=== PATIENT | male | born 1950 | race Caucasian/White ===

== ENCOUNTER 2020-05-17 16:23 | Emergency (ER) | payer MEDICARE, OTHER ==
[~2020-05-17] VITALS: Ht 177.8 cm; Wt 108.9 kg
[~2020-05-17 16:23] MED LIST: AMITIZA8 MCG PO; DOXEPIN HCL10 MG PO; INDOMETHACIN50 MG; LISINOPRIL20 MG PO; METFORMIN HCL500 M2 PO; PRAVACHOL40 MG PO; PROBIOTIC1 EAC1 PO; TRAMADOL HCL50 MG PO; TUMS200 MG PO
[2020-05-17] MEDS ORDERED: PIROXICAM20 MG PO (16:57)
[2020-05-17] MEDS ORDERED: ALLOPURINOL100 MG PO (16:58)
== END 2020-05-17 19:19 | disposition home or self-care (01) ==
LOC: ED 16:23
DX: M54.6 Pain in thoracic spine (principal); I10 Essential (primary) hypertension; E11.9 Type 2 diabetes mellitus without complications; Z88.0 Allergy status to penicillin; Z88.5 Allergy status to narcotic agent; Z91.048 Other nonmedicinal substance allergy status; Z79.899 Other long term (current) drug therapy; Z79.84 Long term (current) use of oral hypoglycemic drugs
CPT/HCPCS: 74176; 80053; 81001; 85025; 96374; 96376; 99284-25; J1885

== ENCOUNTER 2020-05-19 12:17 | Inpatient (IN) | payer MEDICARE, OTHER ==
[~2020-05-19] VITALS: Ht 177.8 cm; Wt 108.0 kg
[~2020-05-19 12:17] MED LIST changes: +ALLOPURINOL100 MG PO; +PIROXICAM20 MG PO
--- OUTSIDE RECORDS SUMMARY | 2020-05-19 12:20 | XMS ---
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 Meggan has no Care Guidelines for this patient. K[facility] (12 MO.) [facility] NOTE: Visits indicate total known visits. ED/C VISIT TRACKING (12 MO.) [facility] COMPLAINT: - ABD PAIN 05/17/2020 16:23 [facility] Lennon OR TYPE: Emergency COMPLAINT: - R FLANK PAIN INPATIENT VISIT TRACKING (12 MO.) No inpatient visits to display in this time frame [email or web address]
[2020-05-19] MEDS ORDERED: TAMSULOSIN HCL0.4 MG PO (16:45)
--- NOTE | 2020-05-19 17:37 | NUR ---
this rn went to er to get pt to transition care to med surg, introduced self, confirmed allergys on consent for sx, red band to arm. pt voided 300 ml urine dark in urinal and rn emptied, new iv bag of lr at 125 hung. pt oriented to plan of care and transiton to surgery and med surg. pt to go to or from er.
--- NOTE | 2020-05-19 19:53 | NUR ---
05/19/201951 Samantha Moctezuma 193Yoly PATIENT INTO PACU FROM OR. BEDSIDE REPORT WITH HAL KEBEDE AND MARILYN RN. PATIENT HAS AIRWAY IN PLACE AND ON 10 L OXYGEN WITH MASK. DRESSING TO ABDOMEN C/D/I WITH ELENO IN PLACE. PATIENT BREATHING REGULAR AND DAVIDE.
--- NOTE | 2020-05-19 20:29 | NUR ---
PT ARRIVED TO ROOM 123 FROM PACU. PT ALERT, ORIENTED, DENIES PAIN OR DISCOMFORT. WITH SBA, HE STOOD UP AND TRANSFERED TO HOSP BED FROM THE STRETCHER. AT THIS TIME, PT HAS NOT VOIDED SINCE SURGERY.
--- NOTE | 2020-05-19 21:15 | NUR ---
PT TO ROOM 123 WITH PACU NURSE. REPORT RECEIVED. PT ALERT AND ORIENTED. ABLE TO TRANSFER SELF WITH SBA FROM STRETCHER TO BED. DENIES PAIN OR NAUSEA AT THIS TIME. ORDERS RECEIVED. LAP SITES X 3 CDI. INCISION TO RLQ COVERED WITH ACTICOAT AND ADHESIVE DRESSING WITH SMALL AMOUNT OF SEROSANG DRAINAGE. ELENO DRAIN IN PLACE WITH SMALL AMOUNT OF SEROSANG DRAINAGE. ABD ROUND AND FIRM. BT HYPOACTIVE. SCD'S IN PLACE. ASSESSMENT COMPLETE. SCHEDULED MEDS ADMINISTERED. IVF INFUSING. PT ORIENTED TO ROOM AND NURSE CALL LIGHT. DENIES QUESTIONS OR CONCERNS AT THIS TIME. WHITE BOARD UPDATED. CALL LIGHT IN REACH.
--- NOTE | 2020-05-19 21:26 | EKG ---
[facility] [address] [facility] [place], [place] [address] Signed Normal sinus rhythm Left axis deviation Abnormal ECG No previous ECGs available Confirmed by BOSSMAN JO MD ([id number]) on 05/19/2020 9:26:35 PM Electronically Signed By: BOSSMAN JO MD 05/19/202125 PATIENT NAME: LUKAS LEVI Electrocardiogram DATE OF : 50 PHYSICIAN: BOSSMAN JO MD REPORT #: [id number] REPORT IS CONFIDENTIAL AND NOT TO BE RELEASED WITHOUT AUTHORIZATION
--- NOTE | 2020-05-19 21:33 | NUR ---
VITALS COMPLETE. PT WOKE TO SOUND. DENIES PAIN NEEDS, DRESSING WITH DRAINAGE, RLQ; DRAIN INTACT. SCD'S IN PLACE. STATES THEY MAKE LEGS FEEL GOOD. DENIES NEED TO VOID AT THIS TIME. CALL LIGHT WITHIN REACH.
--- NOTE | 2020-05-19 22:45 | NUR ---
POST-OP VS COMPLETE. WNL. PT UP TO BR WITH SBA TO VOID 450 ML CONCENTRATED URINE. GAIT STEADY. BACK TO BED, DARRICK WELL. PT REPORTS INCREASED PAIN WITH AMB AND GETTING OOB. WHILE AT REST 05/12. DENIES NAUSEA.
--- NOTE | 2020-05-19 23:25 | NUR ---
PRN ADMINISTERED FOR ABD PAIN. CLEAR LIQUIDS PROVIDED. ICE PACK PROVIDED FOR INCISIONAL PAIN.
--- NOTE | 2020-05-19 23:47 | NUR ---
POST-OP VS COMPLETE. WNL. ASSISTED PT TO REPOSITION IN BED. NO FURTHER NEEDS AT THIS TIME. CALL LIGHT IN REACH.
--- NOTE | 2020-05-20 02:48 | NUR ---
VS AND I&O COMPLETE. PT UP TO BR WITH SBA TO VOID. GAIT STEADY. BACK TO BED, DARRICK WELL. SCD'S IN PLACE. PT REPORTS ABD PAIN 05/12, DENIES PRN FOR PAIN AT THIS TIME. DENIES NAUSEA. CLEAR LIQUIDS PROVIDED. FRESH ICE PACK FOR INCISION. O2 2L/NC AND CPOX IN PLACE. SpO2 96% ON 2L. HR 80'S.
--- NOTE | 2020-05-20 06:34 | NUR ---
ASSESSMENT COMPLETE. IV ABX INFUSING PER ORDER. ABD FIRM AND DISTENDED. PT STATES THIS IS "NORMAL" FOR HIM. BOWEL TONES ACTIVE. PT REPORTS FLATUS. LAP SITES X 3 COVERED WITH GAUZE AND OPSITE WITH SMALL AMOUNT SEROSANG DRAINAGE. RLQ DRESSING REINFORCED WITH DRAIN SPONGE AND FOAM TAPE. PRN ADMINISTERED FOR RLQ PAIN. PT DENIES NAUSEA. BREAKFAST ORDERED. OXYGEN WEENED OFF AT THIS TIME. SpO2 95% ON RA. CPOX IN PLACE. CALL LIGHT IN REACH.
--- NOTE | 2020-05-20 07:15 | NUR ---
ROUNDING REPORT..TALKED TO PT ABOUT HAVING HIS BRING IN HOME CPAP.
--- NOTE | 2020-05-20 07:16 | NUR ---
CALL LIGHT ANSWERED. SBA TO THE BATHROOM. PATIENT IS BACK TO BED. NO OTHER NEEDS AT THIS TIME.
--- NOTE | 2020-05-20 07:57 | NUR ---
PT RESTING SOUNDLY AT SHIFT EXCHANGE. SITTING URIGHT NOW EATING MORNING MEAL. DENIES PAIN OR NEEDS OF
[2020-05-20] MEDS ORDERED: FISH OIL 1,0001 EAC3 PO (09:51)
[2020-05-20] MEDS ORDERED: L-ARGININE1000 MG PO (09:53)
[2020-05-20] MEDS ORDERED: VITAMIN B-121000 MC2 SL (09:54)
--- NOTE | 2020-05-20 09:55 | NUR ---
MED REC COMPLETE
--- NOTE | 2020-05-20 10:52 | NUR ---
PT UP TO TOILET THEN AMBULATES THE LUCIO 5 ROUNDS WELL TOLERATED. DENIES ANY ABDOMINAL PAIN EXCEPT WHEN GETTING UP AND DOWN. DOES REPORT SOME CHRONIC BACK PAIN. TYLENOL ADMINISTERED, IBUPROFEN EARLIER. PT RETURNS TO RESTING IN BED STATES HE WANTS TO HAVE A NAP BEFORE HIS GETS HERE.
--- NOTE | 2020-05-20 11:00 | NUR ---
Met with patient to discuss his discharge plan. Pt plans to go home with , pt reports no problems with obtaining food or medication. Pt has no concerns in returning home with his , he is ambulating in the cantu and does not anticipate needing any DME at discharge.
--- NOTE | 2020-05-20 11:04 | NUR ---
PATIENT AMBULATED IN HALLWAY WITH RN. PATIENT NOW IN BED RESTING. FRESH ICE PACK GIVEN. CALL LIGHT IN REACH. NO FURTHER NEEDS AT THIS TIME.
--- NOTE | 2020-05-20 13:30 | NUR ---
PT IN TO SEE HIM, ASSISTS HIM TO DO PERSONAL CARES. PT AMBULATES THE LUCIO WITH SEVERAL ROUNDS RETURNS TO BED.
--- NOTE | 2020-05-20 13:30 | NUR ---
PT UP AMBULATING IN LUCIO WITH RN RAUL. HE SEEMS TO BE MOVING WELL, DOING SEVERAL LAPS. GAVE ENCOURAGEMENT, WILL FOLLOW
--- NOTE | 2020-05-20 15:04 | NUR ---
HELPED PATIENT DO A SPONGE BATH. ORAL CARE, CROW CARE, SKIN CARE, SHAMPOO DONE. PATIENT NOW BACK IN BED. CALL LIGHT IN REACH. NO FURTHER NEEDS AT THIS TIME.
--- NOTE | 2020-05-20 15:30 | NUR ---
PT RESTING EYES CLOSED
--- NOTE | 2020-05-20 17:13 | NUR ---
PT WAS IN FOR A VISIT BROUGHT HOME CPAP. SHE LEAVES FOR THE EVENING. PT SITTING UPRIGHT IN BED WITH EVENING MEAL DENIES DISCOMFORTS OR NEEDS OF
--- NOTE | 2020-05-20 18:25 | NUR ---
[facility] PATIENT NOW BACK TO BED. CALL LIGHT IN REACH. NO FURTHER NEEDS AT THIS TIME.
--- NOTE | 2020-05-20 18:40 | NUR ---
PT TOLERATES 100% OF EVENING MEAL. UP AMBULATING THE HALLS INDEPENDANTLY STEADY ON HIS FEET
--- NOTE | 2020-05-20 19:42 | NUR ---
REPORT RECEIVED FROM DAY SHIFT RN. PT LYING IN BED ALERT AND ORIENTED. DENIES NEEDS AT THIS TIME. WHITE BOARD UPDATED. CALL LIGHT IN REACH.
--- NOTE | 2020-05-20 19:50 | NUR ---
VISITED WITH PT, STATES HE IS DOING OK. ASSISTED HIM WITH BUTTONING HIS GOWN, CHECKED ELENO, SCANT AMOUNT DRAINAGE, SEROSANGUINOUS. PT WITH NO OTHER NEEDS.
--- NOTE | 2020-05-20 20:39 | NUR ---
SENIOR SUPPORT ENGINEER TO ROOM FOR SCHEDULED MED ADMINISRATION. PT REPORTS HAVING INCREASED PAIN TO NAVAL, IS CONCERNED THAT THIS IS LASTING FROM [place] SHOT ADMINISTERED EARLIER IN THE DAY. SENIOR SUPPORT ENGINEER ASSESSED PT'S ABD, LAP SITE PRESENT TO NAVAL WITH GAUZE AND OPSITE. SMALL AMOUNT OF DRAINAGE PRESENT TO GAUZE. PT STATES HE WAS UNAWARE THAT HE HAD A LAP SITE THERE. STATES THE PAIN "MAKES SENSE NOW". VS OBTAINED, WNL. ELENO DRAIN EMPTIED, SANGUINEOUS DRAINAGE PRESENT. SCD'S APPLIED. ICE PACK AND ICE WATER PROVIDED. PT DENIES FURTHER NEEDS AT THIS TIME. CALL LIGHT IN REACH.
--- NOTE | 2020-05-20 21:35 | NUR ---
PATIENT CALLED. SBA TO THE BATHROOM AND BACK TO BED. SCD BACK ON. ICE WATER AND CHICKEN BROTH PROVIDED PER PATIENT'S REQUEST. NO OTHER NEEDS AT HTIS TIME.
--- NOTE | 2020-05-20 21:45 | NUR ---
EVENING ASSESSMENT COMPLETE. SCHEDULED MEDS ADMINISTERED PER EMAR. PT DENIES PAIN OR NAUSEA. ABD FIRM AND DISTENDED. PT STATES NORMAL. BOWEL TONES ACTIVE, PT REPORTS FLATUS BUT NO BM TODAY. LAP SITES X 3 COVERED WITH SMALL AMOUNT SEROSANG DRAINAGE. INCISION TO RLQ COVERED WITH GAUZE AND SATURATED WITH SEROSANG DRAINAGE AT DISTAL END. DRESSING REPLACED WITH CLEAN DRAIN SPONGE, ABD PAD, AND FOAM TAPE. ELENO INTACT WITH SMALL AMOUNT SEROSANG DRAINAGE. CLEAN GOWN PROVIDED. PT DENIES QUESTIONS OR CONCERNS. CALL LIGHT IN REACH.
--- NOTE | 2020-05-20 22:57 | NUR ---
SBA TO THE BATHROOM AND BACK TO BED. SCD BACK ON. NO OTHER NEEDS AT THIS TIME.
--- NOTE | 2020-05-20 23:35 | NUR ---
CALL LIGHT ANSWERED. IV ABX COMPLETE. PT UP TO BR WITH MINIMAL SBA TO VOID. GAIT STEADY. BACK TO BED, DARRICK WELL. PRN ADMINISTERED FOR ABD PAIN. ICE PACK PROVIDED. NO FURTHER NEEDS AT THIS TIME. CALL LIGHT IN REACH.
--- NOTE | 2020-05-21 01:15 | NUR ---
PT RESTING IN BED WITH EYES CLOSED, NAD. HOME C-PAP IN USE. SCD'S IN PLACE.
--- NOTE | 2020-05-21 03:00 | NUR ---
IV ABX INFUSING PER ORDER. PT UP TO BR WITH MINIMAL SBA TO VOID 350 ML CLEAR YELLOW URINE. PT ATTEMPTED BM WITH NO RESULTS STATES "IT'S JUST GAS". BACK TO BED, DARRICK WELL. FRESH WATER AND ICE PACK PROVIDED. PT WEARING HOME C-PAP. DENIES FURTHER NEEDS. CALL LIGHT IN REACH.
--- NOTE | 2020-05-21 06:28 | NUR ---
VS AND I&O COMPLETE. PT REPORTS HE WAS INDPENDENT TO BR AND DARRICK WELL. ABD DISTENDED AND FIRM WHICH PT STATES NORMAL. LAP SITES X 3 UNCHANGED. DRESSING TO RLQ INCISION WITH SMALL AMOUNT SHADOWING. ELENO DRAIN WITH SCANT AMOUNT SEROSANG DRAINAGE. PRN ADMINISTERED FOR ABD PAIN. FRESH WATER AND ICE PACK PROVIDED. NO FURTHER NEEDS. CALL LIGHT IN REACH.
--- NOTE | 2020-05-21 08:08 | NUR ---
PT SLEEPING SOUND AT SHIFT CHANGE. AWAKENS TO VOICE FOR ASSESSMENT. PT SITTING UPRIGHT IN BED AT THIS TIME EATING BREAKFAST. DENIES DISCOMFORTS OR NEEDS OF.
--- NOTE | 2020-05-21 09:41 | NUR ---
PT IS UPBEAT AND TALKATIVE STATES HE FEELS WELL. TOLERATES 100% OF MORNING MEAL DENIES UPSET OR DISCOMFORTS. PO ABX STARTED PT VERBALIZES UNDERSTANDING OF POSSIBLE SIDE EFFECTS AND WHAT S/S TO REPORT. PT AGREES TO AMBULATE SEVERAL TIMES THIS SHIFT
--- NOTE | 2020-05-21 10:09 | NUR ---
DR ISLAS IN TO SEE PT HE REPORTS HE WILL GO HOME LATER TODAY OR TOMORROW
--- NOTE | 2020-05-21 10:33 | NUR ---
PT USING I/S EFFECTIVELY REMINDED TO AMBULATE SEVERAL TIMES THIS SHIFT, PT VERBALIZES UNDERSTANDING
--- NOTE | 2020-05-21 10:47 | NUR ---
PATIENT SITTING ON EDGE OF BED AT THIS TIME AND GOING TO AMBULATE IN HALLWAY, IND. LINENS CHANGED. CALL LIGHT IN REACH. NO FURTHER NEEDS AT THIS TIME.
--- NOTE | 2020-05-21 11:07 | NUR ---
PT IS ALERT, ORIENTED AND ICE PACK ON AMDOMEN. PT HAD TROUBLE SLEEP, WANTS TO TRY AND STAY AWAKE DURING THE DAY TO HELP WITH NIGHTTIME SLUMBER. PANDEMIC IS OBVIOUSLY ON HIS MIND. GAVE ENCOURAGEMENT, PT THANKED ME FOR VISIT. BLESSING GIVEN, WILL FOLLOW
--- NOTE | 2020-05-21 11:10 | NUR ---
PT UP AMBULATING THE LUCIO INDEPENDANTLY. STEADY ON HIS FEET DENIES DISCOMFORTS OR NEEDS FROM STAFF
--- NOTE | 2020-05-21 13:38 | NUR ---
PT TOLERATES 100% OF NOON MEAL NO NAUSEA OR ABDOMINAL PAIN. C/O BACK PAIN. RUBBING BACK PER HIS REQUEST TYLENOL ADMINISTERED. PT TO BED TO REST AFTER HAVING WALKED SEVERAL TIMES THIS SHIFT
--- NOTE | 2020-05-21 13:50 | NUR ---
dr jain in to see pt charla dc'd well tolerated. dc instructions provided all questions answered
[2020-05-21] MEDS ORDERED: CIPROFLOXACIN500 MG PO (14:00)
[2020-05-21] MEDS ORDERED: ACETAMINOPHEN500 MG PO (14:01)
[2020-05-21] MEDS ORDERED: IBUPROFEN600 MG PO (14:01)
[2020-05-21] MEDS ORDERED: METRONIDAZOLE250 MG PO (14:01)
--- NOTE | 2020-05-22 15:13 | OR ---
[facility] [address] [place], [place] [address] Signed DATE OF OPERATION: 05/19/2020 SURGEON: Ora Islas MD PREOPERATIVE DIAGNOSES: 1. Acute appendicitis. 2. Morbidly obese abdomen (beach ball abdomen). POSTOPERATIVE DIAGNOSES: Retrocecal appendicitis with perforation and retrocecal abscess. PROCEDURES: 1. Laparoscopy with conversion open appendectomy. 2. Open drainage of intraabdominal abscess. 3. Placement of drain. ANESTHESIA: General endotracheal, Gerry Katya, PLATE KEEPER and local 20 mL of 0.25% Marcaine with epinephrine. INDICATION: This 69-year-old white man presented to the emergency room on Wednesday (today is Wednesday) with posterior thoracic pain on the right side. Concern was maintained for possible cholecystitis initially. A CT scan was obtained to assess for a nephrolithiasis. There is no such finding on CT scan and no other finding of note. He returned home, but presented later today and was evaluated by Dr. Varma, emergency room physician with ongoing complaints of posterior thoracic pain on the right side, but additionally a right lower abdominal pain. Today, his evaluation shows an elevated white count of greater than 17,000. A CT scan was repeated which showed inflammatory changes around what appears to be a retrocecal appendix consistent with appendicitis. He has been fluid resuscitated, given antibiotic cefoxitin and now to undergo appendectomy preferred by laparoscopic approach. The risks of bleeding, infection, need for conversion to open operation, and other unforeseen complications was reviewed in detail with him. He understands and wished to proceed. FINDINGS: The patient has an impressively obese abdomen. Indeed the abdomen looks as though it had pneumoperitoneum prior to any intervention on it at all and had a typical appearance of a "beach ball abdomen." Nevertheless, laparoscopy was performed showing right paracolic purulence extending down to the pelvis and cephalad as well. Laparoscopic Electronically Signed By: ORA ISLAS MD 05/22/20 1513 PATIENT NAME: LUKAS LEVI OPERATIVE REPORT DATE OF : 50 REPORT #: [id number] PHYSICIAN: ORA ISLAS MD PCP: PEDRITO GONZALES MD REPORT IS CONFIDENTIAL AND NOT TO BE RELEASED WITHOUT AUTHORIZATION [facility] [address] [place], [place] [address] Signed evaluation allowed for visualization of the cecum, but there was a dense fibrous covering that would not allow for laparoscopic dissection in a safe way and on that basis, conversion to open operation was undertaken. This was then found to have indeed a true retrocecal appendix with abscess. Appendectomy was performed which confirmed a perforation at the base of the appendix. There was no evidence of free fecalith. Complete appendectomy has been performed and a drain was placed as well. The operation was prolonged, complicated, and difficult on the basis of the operative findings. DESCRIPTION OF PROCEDURE: The patient was brought to the operating room and given a general endotracheal anesthetic. Preoperative antibiotic cefoxitin had been given. Sequential compression device stockings used and heparin subcutaneously administered. He was intubated without incident. The rotund abdomen was prepared with a chlorhexidine solution and draped sterilely. An infraumbilical incision was made using an open Star cannula technique. Pneumoperitoneum was achieved to a level of 14 mmHg with carbon dioxide gas. The patient did not have that much subcutaneous fat, virtually all of his fat was visceral fat intra-abdominally noted. Upon entry into the abdomen, visualization of purulent material in the right paracolic gutter was noted. This extended cephalad and into the pelvis a bit as well. An epigastric 12 mm port was placed in the camera replaced to that site using single hand manipulation. The cecum and ilium could be manipulated showing marked erythema and fibrinous peel consistent with advanced appendicitis. A right lower quadrant 5 mm port was placed and using two hand dissection, the bowel loops were freed and isolated showing more and more fibrinous peel in the right lower abdomen. The appendix was not visualized. The cecum was rolled medially and the dense fibrous covering was noted. Given the distorted features, his significant intraabdominal obesity and apparent retrocecal process, conversion to open operation was deemed most advisable. The trocars removed under direct visualization showing no sign of bleeding. The infraumbilical fascial incision was reapproximated with interrupted 0 Vicryl suture. The incision was made in the right lower quadrant having marked the appropriate site with the aid of laparoscopy. A classic gridiron incision was used and the abdomen entered without problem. Copious purulent material was then exiting from the area. Gram stain and cultures were obtained. Using appendectomy retractors, further manipulation of the cecum could be undertaken breaking into an abscess cavity. The appendix was not visualized but rather palpated and was densely adherent to the retrocecal area. Once the abscess was cleared, further manipulation was undertaken of the cecum itself. With various manipulations, the cecum could be defined. The base of the appendix was inferior and the appendix projected superiorly in the retrocecal area. Stonewall clamp was applied to the base of the appendix and with various manipulations, the appendix was ultimately freed. In aggregate, it was not all that large, but was markedly thickened and quite obviously inflamed to the point Electronically Signed By: ORA ISLAS MD 05/22/20 1513 PATIENT NAME: LUKAS LEVI OPERATIVE REPORT DATE OF : 50 REPORT #: [id number] PHYSICIAN: ORA ISLAS MD PCP: PEDRITO GONZALES MD REPORT IS CONFIDENTIAL AND NOT TO BE RELEASED WITHOUT AUTHORIZATION [facility] [address] [place], [place] [address] Signed of perforation. The mesentery to the appendix was broad and attached posteriorly and was best controlled primarily with the use of clips. There was really no room for sutures or other interventions. The small and large clips were used, but ultimately the mesentery was well secured. This allowed for elevation of the appendix from the retrocecal space. The base of the appendix was relatively normal, though there was a perforation about a cm from the appendiceal origin. Used an Endo FILIBERTO stapling device. The base of the cecum was transected, flushed with the appendix. A more typical hand-sewn inversion of the stump and so forth was not possible given his body habitus. Irrigation was undertaken more fully. This included the pelvis and retrocecal area and paracolic gutter. Through a separate stab incision, superior and lateral to the McBurney's incision, a 7 mm flat Ankit drain was placed and secured to the skin with nylon suture. It was trimmed to appropriate length and placed in the retrocecal space. Plans were then made for closure. The peritoneum was reapproximated with running 2-0 PDS suture. Muscular layers were reapproximated with interrupted 2-0 PDS after irrigation and application of Marcaine 0.25% with epinephrine. Huma layer was loosely reapproximated with 3-0 Vicryl and skin closed with running subcuticular 3-0 Vicryl after copious irrigation. As the patient declared "allergy" to Steri-Strips, a silver sponge dressing was applied instead. The umbilical, subxiphoid and right lower quadrant trocar sites were irrigated and injected with local anesthetic and closed in layers with interrupted 3-0 Vicryl as well. Gauze dressing was applied to those sites as well as OpSite. The patient had a fair amount of straining upon attempts at extubation for which abdominal pressure was applied to the umbilicus but no disruption of the fascia was noted at least by palpation. He was sedated more fully and brought out of his anesthetic without as much straining on the 2nd attempt. He was ultimately transferred to the recovery room in good condition and suffered no complications. Sponge, needle, and instrument counts reported as correct x3. Blood loss was less than 20 mL Operation was rather prolonged, complicated, and difficult based on his obesity and other factors. Ora Islas MD /MODL /[id number] Electronically Signed By: ORA ISLAS MD 05/22/20 1513 PATIENT NAME: LUKAS LEVI OPERATIVE REPORT DATE OF : 50 REPORT #: [id number] PHYSICIAN: ORA ISLAS MD PCP: PEDRITO GONZALES MD REPORT IS CONFIDENTIAL AND NOT TO BE RELEASED WITHOUT AUTHORIZATION [address] [address] Signed cc: Dr. Dr. Ora Varma Copies: ~ Electronically Signed By: ORA ISLAS MD 05/22/20 1513 PATIENT NAME: LUKAS LEVI OPERATIVE REPORT DATE OF : 50 REPORT #: [id number] PHYSICIAN: ORA ISLAS MD PCP: PEDRITO GONZALES MD REPORT IS CONFIDENTIAL AND NOT TO BE RELEASED WITHOUT AUTHORIZATION
--- NOTE | 2020-05-22 15:13 | HP ---
[facility] [address] [place], [place] [address] Signed ADMISSION DATE: 05/19/2020 REASON FOR ADMISSION: Probable appendicitis. HISTORY OF PRESENT ILLNESS: This obese 69-year-old white man presented to the emergency room today and was evaluated by Dr. Ora Varma with complaints of right lower abdominal pain. Notably, he was seen in the emergency room two days ago where he had vague abdominal pain and right posterior flank pain, for which concern was maintained for possible nephrolithiasis. A CT scan was performed at that time, though I do not see it in the electronic record at this time, which was said to be negative for stone or other abnormality. The patient has had progressive abdominal pain. No associated nausea or vomiting, but poor appetite. His presentation today prompted evaluation with CT scan again, particularly considering his white count was noted to be elevated to 17.5. CT scan findings today as interpreted by Dr. Delaney Reyes shows mild inflammatory changes around the appendix indicating possible early appendicitis. Notably, the appendix was posterior to the cecum above the level of the iliac crest. There is no sign of abscess. There are scattered diverticula. The bladder itself was normal. Liver was normal with fatty infiltration. No radiopaque gallstones were noted. He did have platelike atelectasis in the right anterior lung base and mild coronary artery calcification. PAST MEDICAL HISTORY: Notable for abdominal obesity primarily. He has hypertension. He has not been taking his-antihypertensive medications. He did undergo a cardiac stress test in 2019. It is noted showing no ischemic changes. Further review of his medical record shows he underwent colonoscopy in August of 2015 as well as upper endoscopy. He had diffuse gastritis, hiatal hernia. Otherwise unremarkable upper endoscopy and colonoscopy. MEDICATIONS: Include allopurinol, lisinopril, metformin, piroxicam, and pravastatin. REVIEW OF SYSTEMS: The patient denies any shortness of breath or chest pain. He has had no dysphagia or dysuria. The patient feels like there is a "rib out" in his right posterior thoracic area. He does not have subcostal pain otherwise. He denies any fatty food intolerance and believes that the pain of his right posterior thorax is indeed rib related. Electronically Signed By: ORA ISLAS MD 05/22/20 1513 PATIENT NAME: LUKAS LEVI HISTORY AND PHYSICAL DATE OF : 50 REPORT #: [id number] PHYSICIAN: ORA ISLAS MD PCP: PEDRITO GONZALES MD REPORT IS CONFIDENTIAL AND NOT TO BE RELEASED WITHOUT AUTHORIZATION [facility] [address] [id number] Signed SOCIAL HISTORY: He is . His dropped him at the hospital and then went home. He is retired, formally working in [employer] for various firms around [employer] here. He lives in [place]. PHYSICAL EXAMINATION: GENERAL: This is a pleasant white man, who does not look systemically toxic at this time. VITAL SIGNS: On presentation, showed a temperature of 97, blood pressure 149/116, now 134/83, heart rate 111 now. O2 saturation on room air is 95%. NECK: Shows no thyromegaly or cervical adenopathy. CHEST: Shows no respiratory embarrassment. No tachypnea. Palpation of the right posterior and lateral chest wall does show focal tenderness. There is no crepitus. ABDOMEN: Shows a rotund abdomen. Rovsing sign is negative. He has markedly tenderness at McBurney's point. EXTREMITIES: Show no clubbing, cyanosis, or edema. LABORATORY STUDIES: Show white count 17.5, hematocrit 46.6, platelets 195,000. Chem profile shows normal electrolytes except for sodium of 130, creatinine is 1.04, calcium is 8.9, glucose 182. Alkaline phosphatase and other liver enzymes normal. Urinalysis showed trace blood in the urine. No red cells on examination otherwise. Serology (coronavirus) is pending. ASSESSMENT: The patient has clinical evidence of acute appendicitis and I have reviewed a CT scan. He has a considerable amount of intraabdominal fat and the appendix position is retrocecal, which may have obscured his initial presentation. He clearly has acute abdomen now, however. We have initiated cefoxitin antibiotic. Pepcid intravenously administered and we will give intravenous pain medication, anticipating appendectomy today. Considering our current situation with COVID-19. A rapid COVID test will be obtained and per policy, operation will not proceed until that study is known. We will get a preoperative EKG considering his coronary calcification and his age. The risks of bleeding, infection, failure of diagnosis, missed diagnosis, and need for other indicated procedures. In addition, the appendectomy was reviewed in detail. He understands and agrees. Electronically Signed By: ORA ISLAS MD 05/22/20 1513 PATIENT NAME: LUKAS LEVI HISTORY AND PHYSICAL DATE OF : 50 REPORT #: [id number] PHYSICIAN: ORA ISLAS MD PCP: PEDRITO GONZALES MD REPORT IS CONFIDENTIAL AND NOT TO BE RELEASED WITHOUT AUTHORIZATION [facility] [address] [address] Signed MD LACEY Padilla/MODL /[id number] cc: Ora Gonzales Copies: ~ Electronically Signed By: ORA ISLAS MD 05/22/20 1513 PATIENT NAME: LUKAS LEVI HISTORY AND PHYSICAL DATE OF : 50 REPORT #: [id number] PHYSICIAN: ORA ISLAS MD PCP: PEDRITO GONZALES MD REPORT IS CONFIDENTIAL AND NOT TO BE RELEASED WITHOUT AUTHORIZATION
--- NOTE | 2020-05-22 15:13 | DS ---
[facility] [address] [place], [place] [address] Signed ADMISSION DATE: 05/19/2020 DISCHARGE DATE: 05/21/2020 REASON FOR ADMISSION: Appendicitis. HISTORY OF PRESENT ILLNESS: This 69-year-old white man presented to the emergency room for the second time on Wednesday, previously seen on Wednesday with posterior thoracic pain on the right side, now with increasing pain in the right lower abdomen. His initial evaluation on Wednesday included a CT scan to assess for nephrolithiasis of which there was no such finding. He was evaluated by Dr. Varma on the day of current admission with repeat CT scan which showed inflammation in the region of the appendix. The appendix noted to be in the retroperitoneal position behind the cecum. Notably, his white count was elevated at more than 17,000. He was admitted for further evaluation and care. PERTINENT PHYSICAL EXAMINATION: GENERAL: Showed a pleasant white man, who does not look systemically toxic particularly. CHEST: Clear. HEART: Regular. ABDOMEN: Impressively obese, not unlike a beach ball in configuration. EXTREMITIES: Not particularly obese. There is no clubbing, cyanosis, or edema. LABORATORY STUDIES: Show white count 17.5, hematocrit 46.6, platelets 195,000. Chem profile notable for a sodium of 130, glucose of 182. The urinalysis which showed trace of blood, none on microscopic exam and serologically COVID test ultimately found to be negative. HOSPITAL COURSE: He was admitted given fluid resuscitation parenteral pain medication with Ketoralac and intravenous antibiotic cefoxitin. He underwent operation, which included initial laparoscopy, but was found to have a very difficult appendix which was firmly fixed into the retroperitoneum behind the cecum, ultimately found to have an associated abscess. On that basis, an open operation was ultimately performed. This allowed for appendectomy and drainage of the abscess and placement of a drain in that area. He was converted to broad-spectrum antibiotic meropenem postoperatively due to the finding of perforated appendix with abscess. The drain was placed quickly and drained excessive fluid and he was draining only serous fluid without sign of purulence or other abnormality by time of discharge. Electronically Signed By: ORA ISLAS MD 05/22/20 1513 PATIENT NAME: LUKAS LEVI DISCHARGE SUMMARY DATE OF : 50 REPORT #: [id number] PHYSICIAN: ORA ISLAS MD PCP: PEDRITO GONZALES MD REPORT IS CONFIDENTIAL AND NOT TO BE RELEASED WITHOUT AUTHORIZATION [facility] [address] [place] [address] Signed He was converted to oral antibiotics Cipro and Flagyl anticipating five additional days of therapy. By the day of discharge, he is ambulating well, tolerating a regular diet, has incisional pain well managed by Tylenol alone and the drain has been removed. FOLLOWUP PLAN: He is to return to see me in approximately 4 weeks. He is recommended to avoid lifting more than 10 pounds for the past month, particularly given his obesity. He is permitted to shower. He is encouraged to walk on a daily basis. DISCHARGE MEDICATIONS: 1. Cipro 500 mg p.o. b.i.d. #10. 2. Flagyl 250 mg p.o. t.i.d. #15 to avoid drinking alcohol. 3. Ibuprofen 600 mg p.o. q.6 hours as needed for pain #20. 4. Tylenol 500 mg two tablets p.o. q.6 hours as needed for pain #60. 5. He will resume his usual medications of lisinopril 20 mg p.o. daily. 6. Metformin ER 500 mg p.o. daily. 7. Pravastatin (Pravachol 40 mg p.o. daily). 8. Piroxicam 20 mg p.o. daily as needed. 9. Allopurinol 100 mg p.o. daily. 10. Tamsulosin 0.4 mg p.o. daily. 11. Bush-3 fatty acid capsule. 12. Arginine capsule. 13. Cyanocobalamin B12 tablet daily. DISCHARGE DIAGNOSES: 1. Retrocecal abscess. 2. Perforated appendicitis, status post laparoscopy with conversion to open operation and placement of drain. 3. Abdominal obesity (profound). 4. Sdg-gjfiahn-ntdwvukav diabetes. 5. Hypertension. 6. Dyslipidemia. 7. Benign prostatic hyperplasia symptoms. Ora Islas MD Electronically Signed By: ORA ISLAS MD 05/22/20 1513 PATIENT NAME: LUKAS LEVI DISCHARGE SUMMARY DATE OF : 50 REPORT #: [id number] PHYSICIAN: ORA ISLAS MD PCP: PEDRITO GONZALES MD REPORT IS CONFIDENTIAL AND NOT TO BE RELEASED WITHOUT AUTHORIZATION [address] [address] Signed /CHRISTI /[id number] cc: MD Dr. Ora Betts Copies: PEDRITO GONZALES MD ~ Electronically Signed By: ORA ISLAS MD 05/22/20 1513 PATIENT NAME: AMITALUKAS DISCHARGE SUMMARY DATE OF : 50 REPORT #: [id number] PHYSICIAN: ORA ISLAS MD PCP: PEDRITO GONZALES MD REPORT IS CONFIDENTIAL AND NOT TO BE RELEASED WITHOUT AUTHORIZATION
--- NOTE | 2020-05-22 16:21 | PATH ---
[facility] [address] [facility] [place] [address] Signed SPECIMEN(S): A PERFORATED APPENDIX AND ABSCESS SPECIMEN SOURCE: A. PERFORATED APPENDIX AND ABSCESS CLINICAL HISTORY: Pre/postop: RLQ pain, acute appendicitis, perforated appendix with abscess. FINAL PATHOLOGIC DIAGNOSIS: Perforated appendix and abscess, excision: - Acute suppurative appendicitis with mucosal and bowel wall necrosis and focal perforation. - Acute periappendicitis and serositis. JVR:cml:C2NR MICROSCOPIC EXAMINATION: Histologic sections of all submitted blocks are examined by light microscopy. These findings, together with the gross examination, support the pathologic diagnosis. GROSS DESCRIPTION: The specimen, labeled "DA," and designated on the requisition "perforated appendix with abscess," is received in formalin and consists of Specimen: Appendix with mesoappendix. Dimensions: 5.5 x 3.1 x 1.3 cm. Serosa: [place]-mariscal to hemorrhagic and congested with adherent exudate. Perforation: Grossly perforated (included in cassette). Inking: Staple line is inked black. Mucosa: [place] [employer]-mariscal to hemorrhagic. Fecalith: Not grossly identified. Additional: None. Ingredient Mixer sections are submitted in cassette (A1). AC (under the direct supervision of a pathologist) The Gross Description was prepared using a voice recognition system. The report was reviewed for accuracy; however, sound-alike word errors, addition and/or deletions may occur. If there is any question about this report, please contact Client Services. PERFORMING LABORATORY: The technical component was performed by [facility], [address] [place] [id number] (Cuff Cutter: Amber Salazar MD; CLIA# [id number]). PATIENT NAME: LUKAS LEVI PATHOLOGY DATE OF : 50 REPORT #: [id number] PHYSICIAN: ADI PATHOLOGY PCP: PEDRITO GONZALES MD REPORT IS CONFIDENTIAL AND NOT TO BE RELEASED WITHOUT AUTHORIZATION [facility] [address] [place], [place] [address] Signed Professional interpretation [place] [address]. Diagnostician: Woody Moreno MD Pathologist Electronically Signed 05/22/2020 Copies: ~ PATIENT NAME: LUKAS LEVI PATHOLOGY DATE OF : 50 REPORT #: [id number] PHYSICIAN: ADI PATHOLOGY PCP: PEDRITO GONZALES MD REPORT IS CONFIDENTIAL AND NOT TO BE RELEASED WITHOUT AUTHORIZATION
== END 2020-05-21 14:35 | disposition home or self-care (01) | DRG 340 ==
LOC: ED 12:17 → MS 16:02
PROVIDERS: ADMIT Surgery; ATTEND Surgery
PROC: 0WJG4ZZ Inspection of Peritoneal Cavity, Percutaneous Endoscopic Approach (ICD-10-PCS; 2020-05-19)
PROC: 0DTJ0ZZ Resection of Appendix, Open Approach (ICD-10-PCS; principal; 2020-05-19 18:00)
DX: K35.33 Acute appendicitis with perforation, localized peritonitis, and gangrene, with abscess (principal); Z20.822 Contact with and (suspected) exposure to COVID-19; E66.01 Morbid (severe) obesity due to excess calories; I10 Essential (primary) hypertension; E11.9 Type 2 diabetes mellitus without complications; E78.5 Hyperlipidemia, unspecified; N40.0 Benign prostatic hyperplasia without lower urinary tract symptoms; Z91.14 Patient's other noncompliance with medication regimen; Z53.31 Laparoscopic surgical procedure converted to open procedure; Z88.0 Allergy status to penicillin; Z88.5 Allergy status to narcotic agent; Z79.899 Other long term (current) drug therapy; Z79.84 Long term (current) use of oral hypoglycemic drugs; Z79.1 Long term (current) use of non-steroidal anti-inflammatories (NSAID); Z68.34 Body mass index [BMI] 34.0-34.9, adult
CPT/HCPCS: 00790; 74177; 80053; 81001; 85025; 93005; 93010; 94762; 99285-25; A9270; C9803; J0690; J1100; J1170; J1200; J1644; J1885; J2001; J2185; J2370; J2405; J2704; J3010; J7121; Q9967; U0003